=== PATIENT | female | born 1950 | race Asian ===

== ENCOUNTER 2021-04-15 16:00 | Emergency (ER) | payer OTHER ==
[~2021-04-15] VITALS: Ht 154.9 cm; Wt 56.7 kg
[2021-04-15 16:03] VITALS: BP 103/68
--- NOTE | 2021-04-15 16:34 | NUR ---
Note undone in EDM - 04/15/21 at 1638 by [email or web address] PATIENT PRESENTS TO ED WITH C/O LEFT LEG PAIN . PT STATES DIFFICULTY WALKING . DENIES N/V/D; SKIN IS PINK/WARM/DRY,CIRCULAR RASH NOTED ON L LOWER LEG AREA; AAOX4; LUNGS CLEAR BL; HR EVEN AND REGULAR; PT DENIES ANY FEVER,SOB, OR COUGH AT THIS TIME; PATIENT STATES PAIN OF 6/10 AT THIS TIME; VSS; PATIENT POSITIONED FOR COMFORT; HOB ELEVATED; BEDRAILS UP X2; BED DOWN. FAMILY AT THE BEDSIDE.
[2021-04-15 16:37] VITALS: BP 103/68
--- NOTE | 2021-04-15 16:37 | NUR ---
AT THE BEDSIDE.
--- NOTE | 2021-04-15 16:38 | NUR ---
PATIENT PRESENTS TO ED WITH C/O LEFT LEG PAIN . PT STATES DIFFICULTY WALKING . DENIES N/V/D; SKIN IS PINK/WARM/DRY,CIRCULAR RASH NOTED ON L LOWER LEG AREA; AAOX4; LUNGS CLEAR BL; HR EVEN AND REGULAR; PT DENIES ANY FEVER,SOB, OR COUGH AT THIS TIME; PATIENT STATES PAIN OF 10/10 AT THIS TIME; VSS; PATIENT POSITIONED FOR COMFORT; HOB ELEVATED; BEDRAILS UP X2; BED DOWN. FAMILY AT THE BEDSIDE.
[2021-04-15] MEDS ORDERED: KETOROLAC 60 MG/2 ML VIAL IM ONE (16:40)
[2021-04-15] MEDS ORDERED: IBUP-2213 PO ×2 (16:45→17:18)
[2021-04-15] MEDS ORDERED: ACET-8386 PO ×2 (16:45→17:18)
--- NOTE | 2021-04-15 17:10 | NUR ---
Patient discharged with v/s stable. Written and verbal after care instructions given and explained. Patient alert, oriented and verbalized understanding of instructions. Ambulatory with steady gait. All questions addressed prior to discharge. ID band removed. Patient advised to follow up with PMD. Rx of Hydrocodone/Acetaminophen, Ibuprofen given. Patient educated on indication of medication including possible reaction and side effects. Opportunity to ask questions provided and answered.
== END 2021-04-15 17:10 | disposition home or self-care (01) ==
LOC: MED 16:00
DX: M25.562 Pain in left knee (principal)
CPT/HCPCS: 96372; 99283; J1885

== ENCOUNTER 2022-09-07 09:32 | Emergency (ER) | payer OTHER ==
[~2022-09-07] VITALS: Ht 149.9 cm; Wt 46.3 kg
[~2022-09-07 09:32] MED LIST: ACET-8905 PO; IBUP-2213 PO
[2022-09-07 09:34] VITALS: BP 133/84; PULSE 54; RESP 16; TEMP 97.6; O2SAT 100
--- NOTE | 2022-09-07 09:40 | NUR ---
pt ambulatory to bed 03
--- NOTE | 2022-09-07 10:44 | NUR ---
DR RANGEL AT BEDSIDE FOR EXAM, PT CHANGED TO A GOWN
[2022-09-07 11:08] LABS: BASOPHILS % (AUTO) 0.1 % (0.0-2.0); EOSINOPHILS % (AUTO) 0.3 % (0.0-4.0); HEMATOCRIT 35.3 % (36-48); HEMOGLOBIN 11.6 g/dL (12.0-16.0); LYMPHOCYTES # (AUTO) 1.4 K/uL (2.5-16.5); LYMPHOCYTES % (AUTO) 17.7 % (20.5-51.1); MEAN CORPUSCULAR HEMOGLOBIN 28 pg (27-31); MEAN CORPUSCULAR HGB CONC 33 g/dL (33-37); MEAN CORPUSCULAR VOLUME 84.4 fL (80-94); MONOCYTES % (AUTO) 13.3 % (1.7-9.3); NEUTROPHILS # (AUTO) 5.3 K/uL (1.8-7.7); NEUTROPHILS % (AUTO) 68.6 % (42.2-75.2); PLATELET COUNT (AUTO) 241 K/uL (140-450); RED BLOOD CELL COUNT(AUTO) 4.19 MIL/uL (4.20-5.40); RED CELL DISTRIBUTION WIDTH 15.6 % (11.6-13.7); WHITE BLOOD COUNT (AUTO) 7.7 K/uL (4.8-10.8)
[2022-09-07 11:26] LABS: ALBUMIN 3.1 g/dL (3.4-5.0); ANION GAP 9.5 (8-16); ASPARTATE AMINOTRANSFERASE 18 U/L (15-37); CARBON DIOXIDE 30.3 mmol/L (21-32); CHLORIDE 104 mmol/L (98-107); CREATININE 0.8 mg/dL (0.6-1.3); GFR ARICAN-AMERICAN 91 mL/min (>90); GLUCOSE 103 mg/dL (74-106); POTASSIUM 3.8 mmol/L (3.5-5.1); SODIUM SERUM 140 mmol/L (136-145); TOTAL BILIRUBIN 0.3 mg/dL (0.0-1.0); UREA NITROGEN, BLOOD 15 mg/dL (7-18)
[2022-09-07 12:46] VITALS: BP 133/84; PULSE 54; RESP 16; TEMP 97.6; O2SAT 100
--- NOTE | 2022-09-07 12:49 | NUR ---
Patient discharged with v/s stable. Written and verbal after care instructions given and explained. Patient verbalized understanding. Ambulatory with steady gait. All questions addressed prior to discharge. Advised to follow up with PMD.
== END 2022-09-07 12:46 | disposition home or self-care (01) ==
LOC: MED 09:32
DX: R07.89 Other chest pain (principal); Z79.899 Other long term (current) drug therapy
CPT/HCPCS: 36415; 71045; 80053; 84484; 85025; 85379; 93005; 99285